=== PATIENT | male | born 1985 | race Two or more races ===

== ENCOUNTER 2019-04-18 04:52 | Emergency (ER) | payer SELFPAY ==
[~2019-04-18] VITALS: Ht 170.2 cm; Wt 64.4 kg
[2019-04-18 06:10] LABS: Basophils # (auto) 0.1 uL; Basophils % (auto) 0.5 % (0.0-2.0); Eosinophils # (auto) 0.1 uL; Eosinophils % (auto) 0.6 % (0.0-7.0); Hematocrit 41.5 % (41.0-53.0); Hemoglobin 14.1 g/dL (13.5-17.5); Lymphocytes # (auto) 0.9 uL; Mean Corpuscular Hemoglobin 30.9 pg (28.0-32.0); Mean Corpuscular Hgb Conc. 33.9 g/dL (32.0-36.0); Monocytes # (auto) 0.8 uL; Monocytes % (auto) 6.2 % (0.0-12.0); Neutrophils # (auto) 11.4 uL; Neutrophils % (auto) 85.7 % (37.0-80.0); Nucleated Red Blood Cells % 0.1 %; Platelet Count (auto) 288 10^3/uL (140-450); Red Blood Cells 4.56 10^6/uL (4.5-5.90); Red Cell Distribution Width 14.3 % (11.8-14.3); White Blood Cell 13.3 10^3/uL (4.4-10.8)
[2019-04-18 06:32] LABS: Potassium 4.1 mmol/L (3.5-5.1)
[2019-04-18 06:41] LABS: Albumin 4.5 g/dL (3.4-5.0); BUN/Creatinine Ratio 17.3; Bilirubin, Total 0.5 mg/dL (0.2-1.0); Calcium 9.1 mg/dL (8.5-10.1); Total Protein 8.4 g/dL (6.4-8.2)
[2019-04-18 07:26] VITALS: BP 130/83
[2019-04-18] MEDS ORDERED: cefTRIAXone SOD 1,000 MG VL IM ONE (08:30)
[2019-04-18] MEDS ORDERED: ACETAMINOPHEN/CODEINE#3 (300/30mg) TAB PO ONE (08:30)
== END 2019-04-18 09:10 | disposition home or self-care (01) ==
LOC: ER 04:52
DX: K04.7 Periapical abscess without sinus (principal)
CPT/HCPCS: 36415; 80053; 85025; 96372; 99283; J0696